=== PATIENT | female | born 1990 | race American Indian/Alaskan Native ===

== ENCOUNTER 2019-11-04 11:11 | Outpatient (CLI) | payer OTHER | END 2019-11-04 11:47 | disposition home or self-care (01) | LOC: NST 11:11 | DX: Z34.82 Encounter for supervision of other normal pregnancy, second trimester (principal); O60.00 Preterm labor without delivery, unspecified trimester ==

== ENCOUNTER 2019-11-11 09:23 | Outpatient (CLI) | payer OTHER | END 2019-11-11 10:21 | disposition home or self-care (01) | LOC: NST 09:23 | DX: Z34.83 Encounter for supervision of other normal pregnancy, third trimester (principal) ==

== ENCOUNTER 2020-02-18 11:39 | Inpatient (IN) | payer OTHER ==
[~2020-02-18] VITALS: Ht 160 cm; Wt 78.0 kg
[~2020-02-18 11:39] MED LIST: NIFEDIPINE20 MG PO; PRENATAL CAPLE1 EAC1 PO
[2020-03-11] MEDS ORDERED: VALTREX1000 MG PO (20:23)
== END 2020-03-14 13:14 | disposition home or self-care (01) | DRG 807 ==
LOC: LDR 03-11 19:54 → OB/GYN 03-12 14:28
PROVIDERS: ADMIT Obstetrics & Gynecology Maternal & Fetal Medicine
PROC: 10E0XZZ Delivery of Products of Conception, External Approach (ICD-10-PCS; principal; 2020-03-12)
PROC: 0KQM0ZZ Repair Perineum Muscle, Open Approach (ICD-10-PCS; 2020-03-12)
PROC: 4A1HXFZ Monitoring of Products of Conception, Cardiac Rhythm, External Approach (ICD-10-PCS; 2020-03-12)
PROC: 3E033VJ Introduction of Other Hormone into Peripheral Vein, Percutaneous Approach (ICD-10-PCS; 2020-03-12)
DX: O99.824 Streptococcus B carrier state complicating childbirth (principal); Z37.0 Single live birth; O70.1 Second degree perineal laceration during delivery; Z3A.39 39 weeks gestation of pregnancy

== ENCOUNTER 2020-03-10 08:53 | Outpatient (CLI) | payer OTHER ==
[2020-03-11] MEDS ORDERED: VALTREX1000 MG PO (20:23)
== END 2020-03-10 09:39 | disposition home or self-care (01) ==
LOC: NST 08:53
DX: Z34.83 Encounter for supervision of other normal pregnancy, third trimester (principal)